=== PATIENT | female | born 1970 | race Caucasian/White ===

== ENCOUNTER → 2017-12-07 12:36 | Outpatient (CLI) | payer MEDICARE, BC | END | disposition home or self-care (01) | LOC: D.MRI 12-06 13:30 | DX: M79.672 Pain in left foot (principal); M54.16 Radiculopathy, lumbar region ==

== ENCOUNTER → 2018-01-08 17:26 | Outpatient (CLI) | payer MEDICARE, BC | END | disposition home or self-care (01) | LOC: D.MAMMO 14:15 | DX: Z12.31 Encounter for screening mammogram for malignant neoplasm of breast (principal) ==

== ENCOUNTER → 2018-03-19 19:47 | Outpatient (CLI) | payer MEDICARE, BC | END | disposition home or self-care (01) | LOC: D.MAMMO 13:00 | DX: R92.8 Other abnormal and inconclusive findings on diagnostic imaging of breast (principal) ==

== ENCOUNTER 2018-03-25 17:27 | Emergency (ER) | payer MEDICARE, BC ==
[2018-03-25 19:58] LABS: BASOPHILS 0.1 % (0-2); EOSINOPHILS 0.4 % (0-7); HEMATOCRIT 38.6 % (36.0-48.0); HEMOGLOBIN 12.6 g/dL (12-16); IMMATURE GRANULOCYTES 0.4 % (0-5); LYMPHOCYTES 24.2 % (15-50); MCH 28.4 pg (26.0-34.0); MCHC 32.6 g/dL (31.0-37.0); MCV 86.9 fL (80.0-100.0); MONOCYTES 6.7 % (2-11); NEUTROPHILS 68.2 % (40-80); PLATELET COUNT 249 10x3/uL (130-400); RBC 4.44 10x6/uL (4.00-5.40); RDW 15.8 % (11.5-14.5); WBC 10.6 10x3/uL (4.8-10.8)
[2018-03-25 20:12] LABS: ALBUMIN 2.9 g/dL (3.4-5.0); ANION GAP 10.7 mmol/L (8-16); BILIRUBIN - TOTAL 0.15 mg/dL (0.2-1.3); C-REACTIVE PROTEIN 2.2 mg/dL (0.0-0.9); CALCIUM 8.7 mg/dL (8.5-10.1); CARBON DIOXIDE 29.8 mmol/L (21.0-32.0); CREATININE - SERUM 0.9 mg/dL (0.6-1.3); POTASSIUM - SERUM 4.5 mmol/L (3.5-5.1); PROTEIN - SERUM 6.7 g/dL (6.4-8.2)
[2018-03-25 21:47] LABS: ERYTHROCYTE SEDIMENTATION RATE 15 mm/hr (0-20)
== END 2018-03-25 21:25 | disposition home or self-care (01) ==
LOC: D.ER 17:27
PROVIDERS: Physician Assistant
DX: T87.43 Infection of amputation stump, right lower extremity (principal)

== ENCOUNTER → 2018-03-28 08:33 | Outpatient (CLI) | payer MEDICARE, BC | END | disposition home or self-care (01) | LOC: D.CT 08:30 | DX: R10.9 Unspecified abdominal pain (principal) ==

== ENCOUNTER 2018-04-17 07:20 | Day surgery (SDC) | payer MEDICARE, BC ==
[2018-04-16 15:26] LABS: BASOPHILS 0.1 % (0-2); EOSINOPHILS 0.2 % (0-7); HEMATOCRIT 39.1 % (36.0-48.0); HEMOGLOBIN 12.8 g/dL (12-16); IMMATURE GRANULOCYTES 0.4 % (0-5); LYMPHOCYTES 24.9 % (15-50); MCHC 32.7 g/dL (31.0-37.0); MCV 88.7 fL (80.0-100.0); MEAN PLATELET VOLUME 9.6 fL (7.4-10.4); MONOCYTES 6.8 % (2-11); NEUTROPHILS 67.6 % (40-80); PLATELET COUNT 265 10x3/uL (130-400); RBC 4.41 10x6/uL (4.00-5.40); RDW 15.7 % (11.5-14.5); WBC 13.2 10x3/uL (4.8-10.8)
[2018-04-16 15:52] LABS: CALC OSMOLALITY 284 mosm/kg (275-300); CARBON DIOXIDE 28.7 mmol/L (21.0-32.0); CHLORIDE - SERUM 105 mmol/L (98-107); CREATININE - SERUM 0.8 mg/dL (0.6-1.3); GLUCOSE 111 mg/dL (74-106); POTASSIUM - SERUM 4.6 mmol/L (3.5-5.1); SODIUM 141 mmol/L (136-145); UREA NITROGEN 20 mg/dL (7-18); eGFR NON AFRICAN AMERICAN 81 mL/min (90-120)
[~2018-04-17] VITALS: Ht 165.1 cm; Wt 104.3 kg
--- NOTE | ~2018-04-17 | OP ---
PATIENT NAME: GARRY ALCARAZ MEDICAL RECORD: [id number] :70 LOCATION:D.[facility]ERLY [facility] ADMISSION DATE: SURGEON: CHRISTOPHER VELÁZQUEZ MD DATE OF OPERATION: 04/17/2018 PREOPERATIVE DIAGNOSIS: Chronic pelvic pain. POSTOPERATIVE DIAGNOSES: 1. Chronic pelvic pain. 2. Pelvic adhesive disease. PROCEDURE: 1. Diagnostic laparoscopy. 2. Lysis of adhesions. 3. Bilateral salpingo-oophorectomy. SURGEON: Christopher Velázquez MD ANESTHESIOLOGIST: Dr. Love ANESTHETIC: General. FINDINGS: Uterus is absent. The right and left ovaries were unremarkable. The omentum was adhesed to the midline of the abdomen and extending into the pelvis. What was visualized of the abdominal anatomy is otherwise unremarkable. SPECIMENS REMOVED: Right and left ovary and tube. SPECIMEN DISPOSITION: Pathology. ESTIMATED BLOOD LOSS: Less than 50 cc. FLUIDS: 600 cc lactated Ringer's. URINE OUTPUT: Quantity sufficient void prior to the procedure. INDICATIONS: The patient is a 47-year-old female with chronic pelvic pain. The patient has undergone conservative therapy in the past and desires definitive treatment. The patient also was concerned of cancer and desires removal of ovaries and tubes. DESCRIPTION OF PROCEDURE: After informed consent was assured, the patient was taken to the operating room where anesthetic was obtained. The patient was prepped and draped. An incision was made at the umbilicus to accommodate a 5-mm trocar. Trocar was inserted without difficulty and pneumoperitoneum developed. The patient was placed in Trendelenburg position and accessory ports were placed in the midline and right lower quadrant. The midline port was a 10-12 Xcel port. Right lower quadrant is a 5 mm port. After pneumoperitoneum has been well established, the bowel was freed from the pelvis and a Gyrus coagulation cutter was inserted through the right lower quadrant and the adhesions of the omentum taken down in the midline. Left ovary was now elevated from the midline port and using coagulation cutter, the infundibulopelvic ligament was compressed, coagulated, and until the ovary was free of its attachments to the adnexa. The ovary was now placed in the cul-de-sac. Attention was now directed to the right side. From the midline port, the right OPERATIVE REPORT [id number] GARRY ALCARAZ ovary was elevated and drawn to the midline. The infundibulopelvic ligament was again compressed, coagulated, and . Both ovaries were placed in the cul-de-sac and the pneumoperitoneum was released for 2-3 minutes. Reestablishment of the pneumoperitoneum revealed adequate hemostasis at the operative field. The Endobag was now inserted and both ovaries placed in the bag. The bag was now removed through the midline port. The midline port was removed and the pneumoperitoneum was released. The skin was reapproximated after removal of all trocars and release of pneumoperitoneum. Sterile dressing was applied. Sponge, lap, and needle counts correct times 2. TRANSINT:[id number] Voice Confirmation ID: [id number] DOCUMENT ID: [id number] CHRISTOPHER VELÁZQUEZ MD at 0709 CC: [id number] DICTATION DATE: 04/17/18 1109 LOAN OFFICER ASSISTANT: 04/17/18 1250 [facility] 04/17/18 [id number] [place] [address]
[~2018-04-17 07:20] MED LIST: ANUSOL-HC 2.5%30 GM RC; BACLOFEN10 MG PO; CYMBALTA60 MG PO; KLONOPIN1 MG PO; LOPRESSOR25 MG PO; NEURONTIN600 MG PO; PREDNISONE10 MG PO; PROZAC20 MG PO
[2018-04-17 08:58] VITALS: Ht 165.1 cm; Wt 104.3 kg
== END 2018-04-17 13:45 | disposition home or self-care (01) ==
LOC: D.OPS 07:20 → D.PAN 08:45 → D.OPS 09:30
PROVIDERS: Anesthesiology; Obstetrics & Gynecology
DX: N83.02 Follicular cyst of left ovary (principal); N83.01 Follicular cyst of right ovary; N83.8 Other noninflammatory disorders of ovary, fallopian tube and broad ligament; Z01.812 Encounter for preprocedural laboratory examination

== ENCOUNTER 2018-05-08 16:28 | Inpatient (IN) | payer MEDICARE, BC ==
[~2018-05-08] VITALS: Ht 175.3 cm; Wt 101.9 kg
--- NOTE | ~2018-05-08 | OP ---
PATIENT NAME: GARRY ALCARAZ MEDICAL RECORD: [id number] :70 LOCATION:D. D.2128 ADMISSION DATE:05/08/18 SURGEON: JAMIE WALKER, DATE OF OPERATION: 05/10/2018 PROCEDURE PERFORMED: Right below-knee amputation. PREOPERATIVE DIAGNOSIS: Right infected lower extremity. POSTOPERATIVE DIAGNOSIS: Right infected lower extremity. SURGEON: Jamie Walker D.O. INDICATIONS: Ms. Alcaraz is a 47-year-old female who has a neurologic disorder, who had a partial foot amputation on the right in August of last year after having a great toe amputation and wounds not healing and the stump of the partial foot amputation got infected and she has been dealing with it for quite some time ago in the wound clinic and having it packed and cleaned this last week, she got to a point where it cannot be controlled and she was admitted to the hospital with infection and she had purulence pouring out of her stump and asked her if she would like to try to just go with IV antibiotics and have this resolved and she said she did not, she wanted to have it removed and go to below-knee amputation. I informed her that of the risks and benefits of procedure including phantom limb pain, nerve pain, and need for further surgery as well as the risk for infection. She is okay with that and elected to proceed forward with a below-knee amputation for the infection. DESCRIPTION OF THE PROCEDURE: The patient was given general anesthetic. After she was taken to the operative suite in supine position, given a gram of vancomycin and after cultures were taken, a timeout was performed after the right lower extremity was prepped and draped in sterile fashion and everyone was in agreement to the correct side, site, and patient. The stump was prepped with Betadine and the lower extremity cultures were taken. Vancomycin was given and a tourniquet was inflated after the extremity was exsanguinated above the infection. The incision was marked out and with a 10 blade scalpel, the skin was incised. Careful dissection was then made down to reach compartment; first, the anterior compartment and the lateral compartment and the posterior superficial and deep compartments. The posterior tibial artery was encountered and tied off with 2 silk ties. The tibial nerve had a direct and indirect traction neurotomy ensuring that that would not be at the end of the stump and cause pain and the other vessels were tied off as deemed and needed. The tourniquet was then let down at 28 minutes. The tibia was cut with a saw blade as well as the fibula approximately 2 cm above the tibia cut. Tibia cut was bevelled. Then, a hole was drilled through the anterior port of the tibia and a #2 Ethibond was used to go through that hole and tied the gastroc flap that had been created from the posterior aspect up to the stump doing a myodesis. After this was performed, the fascia was then closed over that with 0 Vicryl in a cmykvs-yh-qdehy fashion and the skin was closed with 2-0 Vicryl in an interrupted fashion. Then, 2-0 Prolene on the skin in a horizontal mattress fashion. A drain had been placed under the fascial layer prior to closure and was left out of the skin. The patient's wound was cleaned and Adaptic, 4 x 4s, and ABD were placed on the stump and then wrapped in Webril and Cody wrap and placed in knee immobilizer. OPERATIVE REPORT [id number] GARRY ALCARAZ The patient was then awakened and taken to the recovery in stable condition. ESTIMATED BLOOD LOSS: Minimal. COMPLICATIONS: None. TRANSINT:[id number] Voice Confirmation ID: [id number] DOCUMENT ID: [id number] JAMIE WALKER DO at 2229 CC: [id number] DICTATION DATE: 05/10/18 183 FINISHING WIRE SAWYER: 05/10/182122 ADM IN [facility] [address] [place] [address]
[2018-05-08 17:53] LABS: BASOPHILS 0.1 % (0-2); EOSINOPHILS 0 % (0-7); HEMOGLOBIN 11.5 g/dL (12-16); IMMATURE GRANULOCYTES 0.4 % (0-5); LYMPHOCYTES 9.8 % (15-50); MCH 29.3 pg (26.0-34.0); MCHC 31.9 g/dL (31.0-37.0); MCV 91.6 fL (80.0-100.0); MEAN PLATELET VOLUME 9.7 fL (7.4-10.4); MONOCYTES 7.7 % (2-11); PLATELET COUNT 242 10x3/uL (130-400); RBC 3.93 10x6/uL (4.00-5.40); RDW 15.5 % (11.5-14.5); WBC 19.3 10x3/uL (4.8-10.8)
[2018-05-08 18:11] LABS: ALBUMIN 2.7 g/dL (3.4-5.0); ANION GAP 12.8 mmol/L (8-16); BILIRUBIN - TOTAL 0.41 mg/dL (0.2-1.3); CALCIUM 9.2 mg/dL (8.5-10.1); CARBON DIOXIDE 27.6 mmol/L (21.0-32.0); CREATININE - SERUM 0.9 mg/dL (0.6-1.3); POTASSIUM - SERUM 4.4 mmol/L (3.5-5.1); PROTEIN - SERUM 6.9 g/dL (6.4-8.2)
[2018-05-08 18:12] LABS: C-REACTIVE PROTEIN 31.4 mg/dL (0.0-0.9)
[2018-05-08 19:54] VITALS: BP 127/68
[2018-05-08 21:05] VITALS: BP 119/76
[2018-05-08 21:08] VITALS: BMI 33.1
[2018-05-09 01:36] VITALS: BP 124/83
[2018-05-09 04:27] LABS: CALC OSMOLALITY 282 mosm/kg (275-300); CALCIUM 8.7 mg/dL (8.5-10.1); CARBON DIOXIDE 27.9 mmol/L (21.0-32.0); CHLORIDE - SERUM 107 mmol/L (98-107); CREATININE - SERUM 0.7 mg/dL (0.6-1.3); GLUCOSE 122 mg/dL (74-106); SODIUM 141 mmol/L (136-145); UREA NITROGEN 15 mg/dL (7-18); eGFR NON AFRICAN AMERICAN > 90 mL/min (90-120)
[2018-05-09 04:46] LABS: BASOPHILS 0.1 % (0-2); EOSINOPHILS 0.4 % (0-7); HEMATOCRIT 33.8 % (36.0-48.0); HEMOGLOBIN 10.9 g/dL (12-16); IMMATURE GRANULOCYTES 0.2 % (0-5); LYMPHOCYTES 23.7 % (15-50); MCH 29.5 pg (26.0-34.0); MCHC 32.2 g/dL (31.0-37.0); MCV 91.4 fL (80.0-100.0); MEAN PLATELET VOLUME 9.9 fL (7.4-10.4); MONOCYTES 8.2 % (2-11); NEUTROPHILS 67.4 % (40-80); PLATELET COUNT 231 10x3/uL (130-400); RDW 15.5 % (11.5-14.5)
[2018-05-09 04:50] LABS: WBC 12.6 10x3/uL (4.8-10.8)
[2018-05-09 06:09] VITALS: BP 114/70
[2018-05-09 09:08] VITALS: BP 105/66
[2018-05-09 12:38] VITALS: BP 119/78
[2018-05-09 13:38] VITALS: Ht 175.3 cm; Wt 101.9 kg
[2018-05-09 16:46] VITALS: BP 123/75
[2018-05-09 20:41] VITALS: BP 92/57
[2018-05-10 00:31] VITALS: BP 106/62
[2018-05-10 06:04] VITALS: BP 116/71
[2018-05-10 07:53] VITALS: BP 107/55
[2018-05-10 11:00] VITALS: BP 109/66
[2018-05-10 16:14] VITALS: BP 112/76
[2018-05-10 20:06] LABS: HEMATOCRIT 32.1 % (36.0-48.0); HEMOGLOBIN 10.4 g/dL (12-16)
[2018-05-11] VITALS (9 sets, daily range): BP systolic 94–121; BP diastolic 53–74
[2018-05-11 07:32] LABS: BASOPHILS 0.1 % (0-2); EOSINOPHILS 0.1 % (0-7); HEMATOCRIT 31.1 % (36.0-48.0); HEMOGLOBIN 10.1 g/dL (12-16); IMMATURE GRANULOCYTES 0.2 % (0-5); MCH 29.3 pg (26.0-34.0); MCHC 32.5 g/dL (31.0-37.0); MCV 90.1 fL (80.0-100.0); MEAN PLATELET VOLUME 9.4 fL (7.4-10.4); MONOCYTES 7.2 % (2-11); NEUTROPHILS 81.4 % (40-80); PLATELET COUNT 223 10x3/uL (130-400); RBC 3.45 10x6/uL (4.00-5.40); RDW 14.8 % (11.5-14.5); WBC 12.3 10x3/uL (4.8-10.8)
[2018-05-11 07:54] LABS: ALBUMIN 2.2 g/dL (3.4-5.0); ALKALINE PHOSPHATASE 96 U/L (46-116); ALT (SGPT) 17 U/L (10-68); BILIRUBIN - TOTAL 0.31 mg/dL (0.2-1.3); CALC OSMOLALITY 276 mosm/kg (275-300); CALCIUM 8.2 mg/dL (8.5-10.1); CARBON DIOXIDE 26.7 mmol/L (21.0-32.0); CHLORIDE - SERUM 102 mmol/L (98-107); CREATININE - SERUM 0.8 mg/dL (0.6-1.3); POTASSIUM - SERUM 4.2 mmol/L (3.5-5.1); PROTEIN - SERUM 6.3 g/dL (6.4-8.2); SODIUM 137 mmol/L (136-145); UREA NITROGEN 6 mg/dL (7-18); eGFR NON AFRICAN AMERICAN 81 mL/min (90-120)
[2018-05-11 07:57] LABS: GLUCOSE 188 mg/dL (74-106)
[2018-05-12] VITALS (9 sets, daily range): BP systolic 104–171; BP diastolic 59–77
[2018-05-12 08:09] LABS: BASOPHILS 0.1 % (0-2); EOSINOPHILS 0.8 % (0-7); HEMATOCRIT 30.8 % (36.0-48.0); HEMOGLOBIN 9.9 g/dL (12-16); IMMATURE GRANULOCYTES 0.3 % (0-5); LYMPHOCYTES 28.2 % (15-50); MCH 29.2 pg (26.0-34.0); MCHC 32.1 g/dL (31.0-37.0); MCV 90.9 fL (80.0-100.0); MEAN PLATELET VOLUME 9.4 fL (7.4-10.4); MONOCYTES 9.6 % (2-11); PLATELET COUNT 225 10x3/uL (130-400); RBC 3.39 10x6/uL (4.00-5.40); RDW 14.9 % (11.5-14.5); WBC 10.6 10x3/uL (4.8-10.8)
[2018-05-12 08:25] LABS: CALCIUM 8.7 mg/dL (8.5-10.1); CARBON DIOXIDE 27.7 mmol/L (21.0-32.0); CHLORIDE - SERUM 107 mmol/L (98-107); CREATININE - SERUM 0.8 mg/dL (0.6-1.3); POTASSIUM - SERUM 3.9 mmol/L (3.5-5.1); SODIUM 142 mmol/L (136-145); eGFR NON AFRICAN AMERICAN 81 mL/min (90-120)
[2018-05-12 08:33] LABS: CALC OSMOLALITY 281 mosm/kg (275-300); GLUCOSE 119 mg/dL (74-106); UREA NITROGEN 8 mg/dL (7-18)
[2018-05-13 02:14] VITALS: BP 168/99
[2018-05-13 04:30] VITALS: BP 145/67
[2018-05-13 05:15] VITALS: BP 110/64
[2018-05-13 06:13] LABS: BASOPHILS 0.1 % (0-2); EOSINOPHILS 0.4 % (0-7); HEMATOCRIT 29.4 % (36.0-48.0); HEMOGLOBIN 9.8 g/dL (12-16); IMMATURE GRANULOCYTES 0.2 % (0-5); LYMPHOCYTES 24.6 % (15-50); MCH 29.9 pg (26.0-34.0); MCHC 33.3 g/dL (31.0-37.0); MCV 89.6 fL (80.0-100.0); MEAN PLATELET VOLUME 9.5 fL (7.4-10.4); NEUTROPHILS 66.7 % (40-80); PLATELET COUNT 215 10x3/uL (130-400); RBC 3.28 10x6/uL (4.00-5.40); RDW 14.8 % (11.5-14.5)
[2018-05-13 06:28] LABS: WBC 13.8 10x3/uL (4.8-10.8)
[2018-05-13 06:35] LABS: CALC OSMOLALITY 280 mosm/kg (275-300); CALCIUM 8.8 mg/dL (8.5-10.1); CARBON DIOXIDE 28.7 mmol/L (21.0-32.0); CHLORIDE - SERUM 103 mmol/L (98-107); CREATININE - SERUM 0.8 mg/dL (0.6-1.3); GLUCOSE 130 mg/dL (74-106); POTASSIUM - SERUM 3.4 mmol/L (3.5-5.1); SODIUM 141 mmol/L (136-145); UREA NITROGEN 7 mg/dL (7-18); eGFR NON AFRICAN AMERICAN 81 mL/min (90-120)
[2018-05-13 09:13] VITALS: BP 128/76
[2018-05-13 12:02] VITALS: BP 103/47
[2018-05-13 15:42] VITALS: BP 126/65
== END 2018-05-13 17:46 | DRG 474 ==
LOC: D.ER 16:28 → D.M2 18:39 → D.EDHOLD 18:39 → D.M2 19:58
PROVIDERS: Family Medicine; Orthopaedic Surgery
PROC: 02HV33Z Insertion of Infusion Device into Superior Vena Cava, Percutaneous Approach (ICD-10-PCS; 2018-05-10)
PROC: B548ZZA Ultrasonography of Superior Vena Cava, Guidance (ICD-10-PCS; 2018-05-10)
PROC: 0Y6H0Z1 Detachment at Right Lower Leg, High, Open Approach (ICD-10-PCS; principal; 2018-05-10 13:00)
DX: T87.43 Infection of amputation stump, right lower extremity (principal); A41.9 Sepsis, unspecified organism; L03.115 Cellulitis of right lower limb; M86.8X6 Other osteomyelitis, lower leg; G62.9 Polyneuropathy, unspecified; F41.8 Other specified anxiety disorders; Y83.5 Amputation of limb(s) as the cause of abnormal reaction of the patient, or of later complication, without mention of misadventure at the time of the procedure

== ENCOUNTER 2018-05-13 18:30 | Inpatient (IN) | payer MEDICARE, BC ==
[~2018-05-13] VITALS: Ht 175.3 cm; Wt 102.1 kg
--- NOTE | ~2018-05-13 | RHP ---
PATIENT: GARRY ALCARAZ MEDICAL RECORD: [id number] ACCOUNT: [id number] [facility] ADMISSION DATE: 05/13/18 REHABILITATION HISTORY AND PHYSICAL EXAMINATION POST ADMISSION PHYSICIAN EXAMINATION ADMITTING DIAGNOSIS: Acinetobacter baumannii infection of the right lower extremity. HISTORY OF PRESENT ILLNESS: The patient is a 47-year-old female patient admitted to inpatient rehab with Acinetobacter baumannii infection of the right lower extremity. She is status post right lower extremity amputation and she presented to the hospital with an infection in her right foot/stump. She had a partial amputation done in August of last year and says she developed a small infected area after she started putting weight on it and more in January of this year. She has been treated at the wound care clinic for some time, is ready for this to be over. She wants the thwlb-qzg-yvfk amputation. She is on IV antibiotics for a day prior to surgical consult, her stump started to get more red. She had fevers and chills recently. Dr. Reyes did a right gzzja-ojy-pbsv amputation on 05/10/2018. The patient is on telemetry to monitor tachycardia and does have a left upper extremity PICC line. She did have a fall during her acute hospital stay prior to this admission. She was independent without ADLs and ambulation, only required an assistive device for extreme distances. She is currently total assist with ambulation, nonweightbearing status on her right lower extremity. She will require intensive therapy in order to regain her independence. COMORBIDITIES: In this patient include decubitus ulcer stage III, cellulitis of the right lower extremity, osteomyelitis, sepsis, vhdth-axr-nqdg amputation, axonal neuropathy, polyneuropathy and tachycardia. PAST MEDICAL HISTORY: Significant for neuropathy, tachycardia, history of diarrhea/constipation and C. diff in the past, depression and anxiety. PAST SURGICAL HISTORY: Includes , hysterectomy, amputation in the past, bladder lift. ALLERGIES: SULFA DRUGS, CARVEDILOL, HYDROMORPHONE, CLINDAMYCIN, DAPSONE AND LINEZOLID. CURRENT MEDICATIONS: Include prednisone 20 mg daily, fluoxetine 60 mg daily, polyethylene glycol 17 grams in 8 ounces of water daily, metoprolol 37.5 mg b.i.d., Neurontin 1200 mg t.i.d., Cymbalta 60 mg b.i.d., Klonopin 1 mg b.i.d., baclofen 10 mg t.i.d. She has been on Bartley 10/325 one tab every 4 hours p.r.n. pain and Levaquin 500 mg daily. HABITS: No current alcohol or tobacco use. FAMILY HISTORY: Noncontributory. SOCIAL HISTORY: The patient hopes to return back home and get back to her prior level of functioning. REVIEW OF SYSTEMS: GENERAL: Does complain of weakness and fatigue. HISTORY AND PHYSICAL [id number] GARRY ALCARAZ HEENT: Denies cold, cough, or congestion. CARDIOVASCULAR: Denies chest pain. PHYSICAL EXAMINATION: VITAL SIGNS: Stable, afebrile. GENERAL: Obese female in no acute distress, alert upon exam. HEENT: Normocephalic and atraumatic. Mucosa moist. NECK: Supple. No lymphadenopathy. LUNGS: Clear at this time. HEART: Regular rate and rhythm. ABDOMEN: Benign. EXTREMITIES: Consistent with a khxsk-apm-izom amputation. NEUROLOGIC: Consistent with neuropathy and weakness. LABORATORY DATA: White count is 9.2, H&H 10.4 and 32.5 and platelet count was noted to be 254. Her sodium is 141, potassium 3.7, BUN and creatinine of 9 and 0.9 and blood sugar is noted to be 151. ASSESSMENT: This 47-year-old female patient admitted to rehab with a working diagnosis of bacterial infection to her extremity status post amputation. The patient tends to make improvement. We instituted the following multidisciplinary therapies including, but not limited to physical, occupational, respiratory, speech, nutritional services, prosthetics and orthotics. Given her complex medical condition and risk for more medical complications, rehabilitation service cannot be provided at a low level of care such as a skilled nurse facility. PLAN: 1. Admit to [facility] for intensive inpatient therapy to include the following disciplines: A. Physical therapy to improve gait, all transfer skills and bed mobility to a modified independent level. B. Occupational therapy to improve activities of daily living to a modified independent level. C. Case management to assist with discharge planning and placement options. D. Nutrition to assist with nutritional needs. E. Rehabilitation nursing to assist in monitoring the patient's underlying medical conditions and to assist with any type of bowel or bladder management. 2. The patient's current medication and medical care will be continued. 2. The patient will be placed on standard fall precautions. 3. The patient's estimated length of stay is approximately 7 to 10 days. 4. Discuss this patient during care team staff meeting tomorrow at lunch. TRANSINT:[id number] Voice Confirmation ID: [id number] DOCUMENT ID: [id number] AKI notes whether there has been none or any medical/functional change since admission: - No change since prescreen. AKI attests patient continues to be appropriate for IRF: - Continues to be appropriate. HISTORY AND PHYSICAL [id number] GARRY ALCARAZ SCOTT MD at 2041 CC: [id number] DICTATION DATE: 05/14/18815 GIFT SHOP CLERK: 05/14/18 0947 ADM IN [place] [id number] [place] [id number]
[2018-05-13 19:00] VITALS: BP 129/80
[2018-05-13 20:15] VITALS: BP 129/80; BMI 33.3
[2018-05-14 06:00] LABS: BASOPHILS 0.1 % (0-2); HEMATOCRIT 32.5 % (36.0-48.0); HEMOGLOBIN 10.4 g/dL (12-16); IMMATURE GRANULOCYTES 0.4 % (0-5); LYMPHOCYTES 35.2 % (15-50); MCH 28.7 pg (26.0-34.0); MCV 89.8 fL (80.0-100.0); MEAN PLATELET VOLUME 9.8 fL (7.4-10.4); NEUTROPHILS 56.3 % (40-80); PLATELET COUNT 254 10x3/uL (130-400); RBC 3.62 10x6/uL (4.00-5.40); RDW 14.9 % (11.5-14.5); WBC 9.2 10x3/uL (4.8-10.8)
[2018-05-14 06:11] LABS: ANION GAP 9.9 mmol/L (8-16); CALCIUM 9.1 mg/dL (8.5-10.1); CARBON DIOXIDE 30.8 mmol/L (21.0-32.0); CREATININE - SERUM 0.9 mg/dL (0.6-1.3); POTASSIUM - SERUM 3.7 mmol/L (3.5-5.1)
[2018-05-14 08:00] VITALS: BP 114/65
[2018-05-14 14:03] VITALS: Ht 175.3 cm; Wt 102.1 kg
[2018-05-14 19:00] VITALS: BP 132/90; BP 155/85
[2018-05-15 08:00] VITALS: BP 123/79
[2018-05-15 19:00] VITALS: BP 162/101
[2018-05-16 08:15] VITALS: BP 106/54
[2018-05-16 19:58] VITALS: BP 117/60
[2018-05-17 06:36] LABS: BASOPHILS 0.1 % (0-2); EOSINOPHILS 0.6 % (0-7); HEMATOCRIT 35.8 % (36.0-48.0); HEMOGLOBIN 11.4 g/dL (12-16); IMMATURE GRANULOCYTES 0.9 % (0-5); LYMPHOCYTES 39.9 % (15-50); MCH 28.5 pg (26.0-34.0); MCHC 31.8 g/dL (31.0-37.0); MCV 89.5 fL (80.0-100.0); MONOCYTES 8.2 % (2-11); NEUTROPHILS 50.3 % (40-80); RDW 14.8 % (11.5-14.5); WBC 11.9 10x3/uL (4.8-10.8)
[2018-05-17 06:38] LABS: PLATELET COUNT 306 10x3/uL (130-400)
[2018-05-17 07:11] LABS: CALC OSMOLALITY 285 mosm/kg (275-300); CALCIUM 8.4 mg/dL (8.5-10.1); CARBON DIOXIDE 29.1 mmol/L (21.0-32.0); CHLORIDE - SERUM 103 mmol/L (98-107); CREATININE - SERUM 0.7 mg/dL (0.6-1.3); GLUCOSE 142 mg/dL (74-106); POTASSIUM - SERUM 3.7 mmol/L (3.5-5.1); SODIUM 141 mmol/L (136-145); UREA NITROGEN 21 mg/dL (7-18); eGFR NON AFRICAN AMERICAN > 90 mL/min (90-120)
[2018-05-17] MEDS ORDERED: LEVAQUIN500 MG PO (08:59)
[2018-05-17 19:00] VITALS: BP 135/94
[2018-05-18 09:14] VITALS: BP 123/87
[2018-05-18 19:08] LABS: AEROBE ID Final report (())
[2018-05-18 20:00] VITALS: BP 122/77
[2018-05-19 08:45] VITALS: BP 130/88
[2018-05-19 19:35] VITALS: BP 148/90
[2018-05-20 06:34] LABS: BASOPHILS 0.1 % (0-2); EOSINOPHILS 0.3 % (0-7); HEMOGLOBIN 11.8 g/dL (12-16); IMMATURE GRANULOCYTES 0.8 % (0-5); LYMPHOCYTES 32.7 % (15-50); MCH 28.9 pg (26.0-34.0); MCHC 31.9 g/dL (31.0-37.0); MCV 90.5 fL (80.0-100.0); MEAN PLATELET VOLUME 10.2 fL (7.4-10.4); MONOCYTES 7.4 % (2-11); NEUTROPHILS 58.7 % (40-80); PLATELET COUNT 323 10x3/uL (130-400); RBC 4.09 10x6/uL (4.00-5.40); WBC 15.4 10x3/uL (4.8-10.8)
[2018-05-20 07:13] LABS: ANION GAP 13.7 mmol/L (8-16); CARBON DIOXIDE 29.1 mmol/L (21.0-32.0); POTASSIUM - SERUM 3.8 mmol/L (3.5-5.1)
[2018-05-20 08:00] VITALS: BP 131/87
[2018-05-20] MEDS ORDERED: BACTRIM DS TABL1 TAB PO (15:31)
[2018-05-20] MEDS ORDERED: NYSTATIN ORAL SU5 ML PO (15:32)
== END 2018-05-20 16:47 | DRG 564 ==
LOC: D.REHAB 18:30
PROVIDERS: Emergency Medicine
DX: T87.43 Infection of amputation stump, right lower extremity (principal); L89.93 Pressure ulcer of unspecified site, stage 3; A41.9 Sepsis, unspecified organism; L03.115 Cellulitis of right lower limb; M86.9 Osteomyelitis, unspecified; G62.9 Polyneuropathy, unspecified; R00.0 Tachycardia, unspecified; Z89.511 Acquired absence of right leg below knee; B96.89 Other specified bacterial agents as the cause of diseases classified elsewhere

== ENCOUNTER 2018-11-25 08:00 | Outpatient (CLI) | payer MEDICARE, BC ==
[2018-05-14 14:03] VITALS: BMI 33.2
[~2018-11-25 08:00] MED LIST changes: +BACTRIM DS TABL1 TAB PO; +LEVAQUIN500 MG PO; +NYSTATIN ORAL SU5 ML PO
== END 2018-11-25 09:00 | disposition home or self-care (01) ==
LOC: D.MAMMO 08:00
DX: R92.8 Other abnormal and inconclusive findings on diagnostic imaging of breast (principal)

== ENCOUNTER → 2019-04-01 16:47 | Outpatient (CLI) | payer MEDICARE, BC ==
[2018-05-14 14:03] VITALS: BMI 33.2
== END | disposition home or self-care (01) ==
LOC: D.RAD 16:47
PROVIDERS: ATTEND Family Medicine
DX: R05 Cough (principal)

== ENCOUNTER 2019-05-11 20:42 | Emergency (ER) | payer MEDICARE, BC ==
[~2019-05-11] VITALS: Ht 175.3 cm; Wt 104.3 kg
[2019-05-11 21:05] VITALS: Ht 175.3 cm; Wt 104.3 kg
[2019-05-11] MEDS ORDERED: AMITRIPTYLINE100 MG PO (21:07)
[2019-05-11] MEDS ORDERED: ABILIFY10 MG PO (21:07)
[2019-05-11] MEDS ORDERED: TRAZODONE HCL150 MG PO (21:08)
[2019-05-11 22:25] LABS: BASOPHILS 0.1 % (0-2); EOSINOPHILS 3.8 % (0-7); HEMOGLOBIN 13.6 g/dL (12-16); IMMATURE GRANULOCYTES 0.6 % (0-5); LYMPHOCYTES 42.7 % (15-50); MCH 30.8 pg (26.0-34.0); MCV 90.7 fL (80.0-100.0); MEAN PLATELET VOLUME 9.7 fL (7.4-10.4); MONOCYTES 5.8 % (2-11); RBC 4.41 10x6/uL (4.00-5.40); RDW 12.6 % (11.5-14.5); WBC 8.4 10x3/uL (4.8-10.8)
[2019-05-11 22:26] LABS: PLATELET COUNT 182 10x3/uL (130-400)
[2019-05-11 22:40] LABS: ALBUMIN 3.2 g/dL (3.4-5.0); ANION GAP 11.1 mmol/L (8-16); BILIRUBIN - TOTAL 0.24 mg/dL (0.2-1.3); CALCIUM 8.9 mg/dL (8.5-10.1); CARBON DIOXIDE 31.8 mmol/L (21.0-32.0); CREATININE - SERUM 0.9 mg/dL (0.6-1.3); POTASSIUM - SERUM 3.9 mmol/L (3.5-5.1); PROTEIN - SERUM 6.6 g/dL (6.4-8.2); URIC ACID 4.1 mg/dL (2.6-7.2)
[2019-05-12] MEDS ORDERED: AUGMENTIN 875-11 TAB PO (00:15)
[2019-05-12 00:24] VITALS: BP 132/79
[2019-05-12 00:43] LABS: ERYTHROCYTE SEDIMENTATION RATE 14 mm/hr (0-20)
== END 2019-05-12 00:24 | disposition home or self-care (01) ==
LOC: D.ER 20:42
PROVIDERS: Family Medicine
DX: L03.116 Cellulitis of left lower limb (principal)

== ENCOUNTER → 2019-07-02 12:43 | Outpatient (CLI) | payer MEDICARE, BC ==
[2019-05-11 21:05] VITALS: BMI 33.2
[~2019-07-02 12:43] MED LIST changes: +ABILIFY10 MG PO; +AMITRIPTYLINE100 MG PO; +AUGMENTIN 875-11 TAB PO; +TRAZODONE HCL150 MG PO
== END | disposition home or self-care (01) ==
LOC: D.CT 12:43
PROVIDERS: ATTEND Internal Medicine Interventional Cardiology
DX: R60.0 Localized edema (principal); M79.605 Pain in left leg

== ENCOUNTER → 2019-07-18 13:37 | Outpatient (CLI) | payer MEDICARE, BC ==
[2019-05-11 21:05] VITALS: BMI 33.2
--- NOTE | 2019-07-22 13:03 | EC ---
PATIENT:GARRY ALCARAZ DATE OF SERVICE: 07/18/19 SEX: F MEDICAL RECORD: [id number] DATE OF : 70 [facility] 49 ADMISSION DATE: 07/18/19 REFERRING PHYSICIAN: INTERPRETING PHYSICIAN: JUAPNABLO MULLINS MD ECHOCARDIOGRAM REPORT ECHO CHARGES 4 ECHO COMPLETE Date: 07/18/19 CLINICAL DIAGNOSIS: HEART MURMUR ECHOCARDIOGRAPHIC MEASUREMENTS (adult normal given) AC root (d.<3.7cm) 3.5 cm LV Septum d (<1.2 cm> 1.1 cm Valve Excursion 1.7 cm LV Septum (systole) 1.5 cm Left Atria (s.<4.0cm> 3.0 cm LVPW d(<1.2cm) 1.5 cm RV (d.<2.3cm) 3.9 cm LVPW (sytole) 1.6 cm LV diastole(<5.6CM) 3.7 cm MV E-F(>70mm/sec) cm LV systole 2.4 cm LVOT Diameter 2.3 cm MV exc.(>10mm) 1.4 cm Est.ejection fraction (50-75%) % DOPPLER: LVIT cm/sec A 74.0 cm/sec E 58.0 cm/sec LA cm/sec RVSP 20 mmHg LVOT 114 cm/sec AOP1/2T m/s Asc. Ao 127 cm/sec RVOT 91 cm/sec RA cm/sec PA 10 cm/sec AV Gradient Peak 6.43 mmHg AV Mean 3.40 mmHg AV Area 3.8 cm MV Gradient Peak 3.15 mmHg MV Mean 1.70 mmHg MV Area cm COMMENTS: Biology Adjunct Instructor: Mamie JOE Duplicate Maker: 3 Dr. Colon TAPE# PACS Pericardial Effusion N DATE OF SERVICE: 07/18/2019 Adequate 2D, color flow imaging, spectral Doppler, and M-Mode No LVH. LV internal dimension is normal. Wall motion is normal. EF is greater than or equal to 55%. Aortic valve is tricuspid. No evidence of stenosis by Doppler interrogation. Left atrium is normal at 3 cm. Mitral valve shows no prolapse. Trace MR. Right-sided chambers are grossly normal. Trace TR. TRANSINT:[id number] Voice Confirmation ID: [id number] DOCUMENT ID: [id number] ECHOCARDIOGRAM REPORT [id number] GARRY ALCARAZ GREGORY A MD at 1303 CC: [id number] DICTATION DATE: 07/19/19 1034 LANDING SIGNAL OFFICER: 07/19/19 1124 DEP CLI 07/18/19 [place] [id number] [place] [id number]
== END | disposition home or self-care (01) ==
LOC: D.HCCARDIO 07-08 10:00 → D.HCCECHO 09:28 → D.HCCARDIO 13:30 → D.HCCECHO 13:37
PROVIDERS: ATTEND Internal Medicine Interventional Cardiology
DX: R01.1 Cardiac murmur, unspecified (principal)

== ENCOUNTER 2020-06-04 16:30 | Outpatient (CLI) | payer MEDICARE, BC ==
[2019-05-11 21:05] VITALS: BMI 33.2
== END 2020-06-04 23:59 | disposition home or self-care (01) ==
LOC: D.MAMMO 16:30
PROVIDERS: ATTEND Family Medicine
DX: Z12.31 Encounter for screening mammogram for malignant neoplasm of breast (principal)